=== PATIENT | female | born 2000 ===

== ENCOUNTER → 2024-03-02 | Outpatient (CLI) | payer SELFPAY | END | disposition home or self-care (01) | LOC: LABPRL 14:40 | PROVIDERS: ATTEND Nurse Practitioner Family | DX: Z00.00 Encounter for general adult medical examination without abnormal findings (principal); E55.9 Vitamin D deficiency, unspecified | CPT/HCPCS: 80053; 80061; 82306; 83036; 84439; 84443; 85025 ==